=== PATIENT | female | born 1945 | race Caucasian/White ===

== ENCOUNTER 2018-07-06 14:00 | Emergency (ER) | payer MEDICARE, BC ==
[~2018-07-06] VITALS: Ht 162.6 cm; Wt 79.1 kg
[2018-07-06 14:08] VITALS: Ht 162.6 cm; Wt 79.1 kg
[2018-07-06] MEDS ORDERED: GLUCOPHAGE500 MG PO (14:10)
[2018-07-06] MEDS ORDERED: MOEXIPRIL HCL7.5 MG PO (14:11)
[2018-07-06] MEDS ORDERED: GLUCOTROL ER2.5 MG PO (14:11)
[2018-07-06] MEDS ORDERED: BYSTOLIC5 MG PO (14:11)
[2018-07-06 19:40] VITALS: BP 165/75
== END 2018-07-06 19:40 | disposition home or self-care (01) ==
LOC: D.ER 14:00
DX: S16.1XXA Strain of muscle, fascia and tendon at neck level, initial encounter (principal); W18.30XA Fall on same level, unspecified, initial encounter; Y93.89 Activity, other specified; Y92.019 Unspecified place in single-family (private) house as the place of occurrence of the external cause; S00.93XA Contusion of unspecified part of head, initial encounter